=== PATIENT | female | born 1945 | race Caucasian/White ===

== ENCOUNTER 2021-09-23 15:45 | Emergency (ER) | payer MEDICARE, BC ==
[~2021-09-23] VITALS: Ht 167.6 cm; Wt 60.3 kg
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
--- NOTE | 2021-09-23 15:56 | NUR ---
DR BARILLAS AT BEDSIDE
--- NOTE | 2021-09-23 16:14 | NUR ---
X RAY AT BEDSIDE
[2021-09-23] MEDS ORDERED: ACETAMINOPHEN ES 500 MG TABLET PO ONE (17:00)
[2021-09-23] MEDS ORDERED: ACETAMINOPHEN ES 500 MG TABLET ONE (17:02)
[2021-09-23] MEDS ORDERED: HYDR-4303 PO (17:07)
--- NOTE | 2021-09-23 18:19 | NUR ---
Patient discharged to home in stable condition. Written and verbal after care instructions given. Patient verbalizes understanding of instruction.
[2021-09-23 18:20] VITALS: BP 106/59
== END 2021-09-23 18:45 | disposition home or self-care (01) ==
LOC: ER 15:52
DX: S62.331A Displaced fracture of neck of second metacarpal bone, left hand, initial encounter for closed fracture (principal); S52.572A Other intraarticular fracture of lower end of left radius, initial encounter for closed fracture; S20.219A Contusion of unspecified front wall of thorax, initial encounter; S00.83XA Contusion of other part of head, initial encounter; I10 Essential (primary) hypertension; Z88.8 Allergy status to other drugs, medicaments and biological substances; Z88.1 Allergy status to other antibiotic agents; V49.59XA Passenger injured in collision with other motor vehicles in traffic accident, initial encounter; Y93.89 Activity, other specified; Y92.413 State road as the place of occurrence of the external cause; Y99.8 Other external cause status
CPT/HCPCS: 71045-TC; 73130-TC